=== PATIENT | male | born 1985 | race Caucasian/White ===

== ENCOUNTER 2017-11-24 22:19 | Emergency (ER) | payer MEDICAID ==
[2017-11-24] MEDS ORDERED: LIDOCAINE 1% (MDV) 10 ML INJ (22:51)
[2017-11-24] MEDS ORDERED: LIDOCAINE 2%/EPI MPF (SDV) 20 ML VIAL INJ (23:00)
[2017-11-24] MEDS: LIDOCAINE 1%/EPI 30 ML INJ INJ (23:43)
== END 2017-11-24 23:44 | disposition home or self-care (01) ==
LOC: E/R 22:19
DX: L02.414 Cutaneous abscess of left upper limb (principal); L03.114 Cellulitis of left upper limb
CPT/HCPCS: 10060; 99284-25